=== PATIENT | male | born 1950 | race Caucasian/White ===

== ENCOUNTER → 2019-07-18 | Outpatient (CLI) | payer MEDICARE ==
--- NOTE | 2019-07-18 09:42 | US ---
EXAMINATION TYPE: US duplex aorta DATE OF EXAM: 07/18/2019 COMPARISON: NONE CLINICAL HISTORY: Z13.6 Encounter for screening for cardiovascular. Medicare screening. EXAM MEASUREMENTS: Abdominal Aorta: Proximal: 2.2cm by 2.2 cm Mid: 1.8cm by 1.8 cm Distal: 1.1cm by 1.2 cm. Bifurcation: Rt: 0.6cm Lt: 0.9cm Portion of proximal aorta obscured by bowel gas. Extensive overlying bowel gas making exam technicall y difficult. IMPRESSION: Slightly suboptimal study, visualized portions of aorta show no greater than 3.0 cm AAA
== END | disposition home or self-care (01) ==
LOC: RADUSWWP 08:09
PROVIDERS: ATTEND Family Medicine
DX: Z13.6 Encounter for screening for cardiovascular disorders (principal)
CPT/HCPCS: 93979

== ENCOUNTER 2020-06-01 19:16 | Emergency (ER) | payer MEDICARE ==
[2020-06-01] MEDS ORDERED: FLUORESCEIN STRIPS 1 MG STRIP LEFT EYE ONE (19:37)
[2020-06-01] MEDS ORDERED: PROPARACAINE 0.5% OPHTH DROPS 15 ML BTL LEFT EYE STA (19:37)
--- NOTE | 2020-06-01 20:27 | ED ---
Eye Problem HPI - General Chief complaint: Eye Problems Stated complaint: eye issues Time Seen by Provider: 06/01/20 19:37 Source: patient Mode of arrival: ambulatory Limitations: no limitations - History of Present Illness Initial comments: 69-year-old male patient presents to the emergency department today for evaluation of visual disturbance to the left eye. Patient states on 4:30 this afternoon he was bending forward working on a rather large when he started to have a change in his vision. Patient states his vision became blurry and he was experiencing black swirling. Patient states that he sees this in the left upper visual field. Patient states that the vision is staying the same and has not changed. He denies any eye pain or headache. Denies history of similar symptoms. Denies history of eye surgery. Does wear reading glasses. Patient denies any recent rash, fever, chills, cough, shortness of breath, chest pain, abdominal pain, nausea, vomiting, diarrhea, constipation, back pain, numbness, tingling, dizziness, weakness, hematuria, dysuria, urinary urgency, urinary frequency, or any other complaints. - Related Data Home Medications Medication Instructions Recorded Confirmed Aspirin [Adult Low Dose Aspirin EC] 81 mg PO DAILY 11/26/15 11/26/15 Atorvastatin [Lipitor] 40 mg PO DAILY 11/26/15 11/27/15 Multivitamin [Men's Multi-Vitamin] 1 each PO DAILY 11/26/15 11/26/15 lisinopriL [Zestril] 20 mg PO DAILY 11/26/15 11/26/15 Allergies Allergy/AdvReac Type Severity Reaction Status Date / Time No Known Allergies Allergy Verified 06/01/20 19:34 Review of Systems ROS Statement: Those systems with pertinent positive or pertinent negative responses have been documented in the HPI. ROS Other: All systems not noted in ROS Statement are negative. Past Medical History Past Medical History: Hyperlipidemia, Hypertension History of Any Multi-Drug Resistant Organisms: None Reported Past Surgical History: Appendectomy, Back Surgery, Orthopedic Surgery Additional Past Surgical History / Comment(s): Colonoscopy Past Anesthesia/Blood Transfusion Reactions: No Reported Reaction Past Psychological History: No Psychological Hx Reported Smoking Status: Former smoker Past Alcohol Use History: None Reported Past Drug Use History: None Reported - Past Family History Mother Family Medical History: Deep Vein Thrombosis (DVT) General Exam Limitations: no limitations General appearance: alert, in no apparent distress, other (This is a well- developed, well-nourished adult male patient in no acute distress. Vital signs upon presentation are temperature 98.0F, pulse 74, respirations 16, blood pressure 155/87, pulse ox 96% on room air.) Eye exam: Present: PERRL, EOMI, other (Limited fundoscopic examination with bedside ophthalmoscope reveals evidence for retinal detachment or abnormality. Left pupil is somewhat irregular in shape over the 6:00 region. Pressure to the left eye was 16-18 mmHg. Patient unable to perform visual acuity on the left. Right is 20/40.). Absent: normal appearance, scleral icterus, conjunctival injection, periorbital swelling ENT exam: Present: normal exam, normal oropharynx, mucous membranes moist Respiratory exam: Present: normal lung sounds bilaterally. Absent: respiratory distress, wheezes, rales, rhonchi, stridor Cardiovascular Exam: Present: regular rate, normal rhythm, normal heart sounds. Absent: systolic murmur, diastolic murmur, rubs, gallop, clicks Neurological exam: Present: alert, oriented X3, CN II-XII intact Psychiatric exam: Present: normal affect, normal mood Skin exam: Present: warm, dry, intact, normal color. Absent: rash Course Vital Signs 06/01/20 06/01/20 19:31 20:25 Temperature 98.0 F 98.3 F Pulse Rate 74 85 Respiratory 16 18 Rate Blood Pressure 155/87 145/80 O2 Sat by Pulse 96 96 Oximetry Medical Decision Making - Medical Decision Making 69-year-old male patient presented to the emergency department today for evaluation of visual change to the left eye. Physical examination did reveal slightly irregular pupil shape especially over the 6:00 region. Funduscopic examination was performed with bedside ophthalmoscope so was somewhat limited but did reveal evidence for retinal detachment or abnormality. He is unable to perform visual acuity on the left, right is 20/40. Pressures in the left eye were normal at 16-18 mmHg Patient is currently in no discomfort. My attending Dr. Matthews was informed immediately, did perform bedside ultrasound which confirmed retinal abnormality. We discussed the case with Dr. Trejo on-call cleaner and trimmer who will see patient in the office first thing in the morning. Return parameters were discussed in detail. Patient verbalizes understanding and agrees with this plan. Disposition Clinical Impression: Retinal detachment, Blurred vision Disposition: HOME SELF-CARE Condition: Good Instructions (If sedation given, give patient instructions): Blurred Vision (ED) Additional Instructions: Follow up with Dr. Trejo cleaner and trimmer first thing in the morning. Call office to determine the best time. Return to the emergency department immediately if symptoms should change or worsen. Is patient prescribed a controlled substance at d/c from ED?: No Referrals: Javier Trejo MD [STAFF PHYSICIAN] - 1-2 days Sonya Cook DO [Primary Care Provider] - 1-2 days Time of Disposition: 20:27
[2020-06-01 20:40] VITALS: BP 145/80; PULSE 85; RESP 18; TEMP 98.3
== END 2020-06-01 20:35 | disposition home or self-care (01) ==
LOC: EC 19:16
DX: H33.22 Serous retinal detachment, left eye (principal); I10 Essential (primary) hypertension; E78.5 Hyperlipidemia, unspecified; Z79.82 Long term (current) use of aspirin; Z79.899 Other long term (current) drug therapy; Z87.891 Personal history of nicotine dependence
CPT/HCPCS: 99283

== ENCOUNTER → 2021-01-08 | Outpatient (CLI) | payer MEDICARE ==
--- NOTE | 2021-01-08 11:05 | US ---
EXAMINATION TYPE: US duplex aorta DATE OF EXAM: 01/08/2021 COMPARISON: NONE CLINICAL HISTORY: I71.4 Abdominal aortic aneurysm, without rupture. AAA screening EXAM MEASUREMENTS: Abdominal Aorta: Proximal: Obscured by bowel gas Mid: 1.5 x 1.2 cm Distal: 1.5 x 1.8 cm Bifurcation: .5 x 1.0 cm .8 x 1.0 cm IMPRESSION: No abdominal aortic aneurysm.
== END | disposition home or self-care (01) ==
LOC: RADUSWWP 10:23
PROVIDERS: ATTEND Family Medicine
DX: Z13.6 Encounter for screening for cardiovascular disorders (principal); I71.4 Abdominal aortic aneurysm, without rupture
CPT/HCPCS: 93979

== ENCOUNTER → 2021-03-09 | Day surgery (SDC) | payer MEDICARE ==
[2021-03-06 10:11] VITALS: BMI 33.8
[~2021-03-09] MED LIST: LACTATED RINGERS 1,000 ML IV SCH; LIDOCAINE 1% INJ 10MG/ML (20 ML MDV) ONE; PROPOFOL 10 MG/ML 20 ML VIAL IV ONE
[2021-03-09 10:53] VITALS: RESP 16; TEMP 97.5
--- NOTE | 2021-03-09 12:37 | P.PCN ---
Date of Procedure: 03/09/21 Description of Procedure: BRIEF HISTORY: Patient is a 70-year-old male presenting for outpatient colonoscopy for history of colon polyps. Last colonoscopy 2016. No change in bowel habits or family history of colon cancer. PROCEDURE PERFORMED: Colonoscopy with polypectomy. PREOPERATIVE DIAGNOSIS: Personal history of colon polyps, last colonoscopy 2015. ESTIMATED BLOOD LOSS: Minimal. IV sedation per Anesthesia. PROCEDURE: After informed consent was obtained, the patient, was brought into the endoscopy unit. IV sedation was administered by Anesthesia under continuous monitoring. Digital rectal examination was normal. Initially the Olympus CF-190 flexible video colonoscope was then inserted in the rectum, gradually advanced into the cecum without any difficulty. Careful examination was performed as the scope was gradually being withdrawn. Ileocecal valve and the appendiceal orifice were visualized and appeared normal. Prep was excellent. Mucosa of the cecum, ascending colon, transverse colon, descending colon, sigmoid colon, and rectum appeared normal, except for multiple small and large mouth diverticula in the left colon. 2 diminutive polyps measuring 1-2 mm in size removed from the cecum and rectum with cold forcep polypectomy. Retroflexion was performed in the r ectum and no lesions were seen, low-grade internal hemorrhoids. The patient tolerated the procedure well. IMPRESSION: 2 diminutive polyps removed with cold forcep polypectomy from the rectum and ce cum. Moderate left colonic diverticulosis. RECOMMENDATIONS: Findings of this examination were discussed with the patient and his family. Okay to resume diet. Okay to resume medications. Await pathology from polypectomies. Recommend repeat colonoscopy in 5 years for history of colon polyps many pathology from polypectomies.
[2021-03-09 12:51] VITALS: BP 124/81; PULSE 61
== END ==
LOC: ORWHC2ENDO 10:21
PROVIDERS: ATTEND Internal Medicine
DX: Z12.11 Encounter for screening for malignant neoplasm of colon (principal); K62.1 Rectal polyp; K63.5 Polyp of colon; K57.30 Diverticulosis of large intestine without perforation or abscess without bleeding; K64.8 Other hemorrhoids; I10 Essential (primary) hypertension; E78.5 Hyperlipidemia, unspecified; Z87.891 Personal history of nicotine dependence; Z90.89 Acquired absence of other organs; Z98.42 Cataract extraction status, left eye; Z98.890 Other specified postprocedural states; M19.90 Unspecified osteoarthritis, unspecified site; Z79.899 Other long term (current) drug therapy
CPT/HCPCS: 88305; 45380; J2001; J2704